=== PATIENT | male | born 1965 | race Caucasian/White ===

== ENCOUNTER 2020-12-14 16:50 | Inpatient (IN) | payer OTHER ==
[~2020-12-14] VITALS: Ht 185.4 cm; Wt 110.2 kg
[2020-12-14 17:04] VITALS: BP 134/68
[2020-12-14 17:26] LABS: ABSOLUTE NEUTROPHILS 8.1 thou/uL (1.4-8.2); BASOPHILS 0.9 % (0.0-2.0); EOSINOPHILS 0.4 % (0.0-3.0); HEMATOCRIT 31.2 % (42.0-52.0); HEMOGLOBIN 10.5 gm/dL (14.0-18.0); LYMPHOCYTES 18.5 % (24.0-44.0); MCH 29.2 pg (26.0-34.0); MCHC 33.7 g/dL (28.0-37.0); MCV 86.7 fL (80.0-100.0); MONOCYTES 6.8 % (1.0-8.0); PLATELET COUNT 319 thou/uL (150-400); POLYS 73.4 % (36.0-66.0); RBC 3.59 mil/uL (4.50-6.00); RDW 13.3 % (10.5-14.5)
[2020-12-14 17:36] LABS: CALCIUM 8.4 mg/dL (8.5-10.1)
[2020-12-14 17:39] LABS: APTT 21.1 Seconds (24.5-32.8); INR 1.02; PROTIME 11.1 Seconds (10.5-12.1)
[2020-12-14 17:43] LABS: ALBUMIN 3.7 g/dL (3.4-5.0); TOTAL BILIRUBIN 0.3 mg/dL (0.2-1.0); TOTAL PROTEIN 6.8 g/dL (6.4-8.2)
[2020-12-14 22:21] VITALS: BP 114/69
[2020-12-14 22:47] VITALS: BP 115/72
[2020-12-14 23:25] VITALS: BP 106/63
--- NOTE | 2020-12-14 23:30 | NUR ---
Pt. was admitted to the unit from the emergency room accompaied by staff. He is alert and oriented. Oriented to the unit and staff. Admission assessment and history is completed. No c/o nausea, but voiced a dull pain in his abdo- men. Up ad rigo to the bathroom. Sinus rythmn on the monitor.
[2020-12-15] VITALS (7 sets, daily range): BP systolic 92–103; BP diastolic 55–67
[2020-12-15 06:20] LABS: HEMATOCRIT 22.6 % (42.0-52.0); HEMOGLOBIN 7.7 gm/dL (14.0-18.0); MCH 29.8 pg (26.0-34.0); MCV 87.8 fL (80.0-100.0); RBC 2.58 mil/uL (4.50-6.00); RDW 12.8 % (10.5-14.5); WBC 5.8 thou/uL (4.0-11.0)
[2020-12-15 06:30] LABS: CALCIUM 7.7 mg/dL (8.5-10.1); POTASSIUM 3.6 mmol/L (3.5-5.1)
[2020-12-15 10:45] LABS: HEMATOCRIT 22.8 % (42.0-52.0); HEMOGLOBIN 7.7 gm/dL (14.0-18.0)
--- NOTE | 2020-12-15 13:24 | NUR ---
Assumed pt care at 7am.Assessment completed.vss but low bp noted.Pt wanted to know when he will be going for gi procedure today. Rn told pt that Gi doc has to see pt first and then decide on when and what kind of procedure to do. Received call from gi lab and pt updates given.Around 1300,Dr Valenzuela rounded on pt and informed pt about going for rgd today.Pt in bed resting and waiting for picker box operator. Will continue to monitor.
--- NOTE | 2020-12-15 15:06 | NUR ---
PT ADMITTED RELATED TO GI BLEED. CM REVIEWED CHART AND SPOKE WITH CARE TEAM. CM MET WITH PT AT BEDSIDE THIS DAY. PT APPEARED TO BE A&O X4. CM ROLE INTRODUCED. PT INDICATED HE LIVES IN A HOUSE WITH HIS SPOUSE AND KIDS. 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 PT INDICATED NO DME OR HH HX. PT INDICATED THAT HE PLANS TO GO ON A [place] TRIP [place]ON [place]. PT'S PCP IS DR. VIVIANA GARCIA. GI FOLLOWING. CM FOLLOWING [facility]ARDINNG DC PLANNING.
[2020-12-16 03:05] VITALS: BP 97/60
--- NOTE | 2020-12-16 03:30 | NUR ---
ASSUMED PT CARE THIS PM. PT IS ALERT AND ORIENTED X4. PT DID NOT C/O PAIN OR N/V. PT DID NOT VERBALIZE ANY CONCERNS. MEDS WERE GIVEN PER EMAR ORDERS. NO VISIBLE SIGN OF DISTRESS WAS NOTED. FALL PRECAUTIONS IN PLACE. WILL CONTINUE TO MONITOR.
[2020-12-16 05:19] LABS: HEMATOCRIT 20.7 % (42.0-52.0); HEMOGLOBIN 7.1 gm/dL (14.0-18.0); MCH 30.2 pg (26.0-34.0); MCHC 34.2 g/dL (28.0-37.0); MCV 88.5 fL (80.0-100.0); RBC 2.33 mil/uL (4.50-6.00); RDW 13.3 % (10.5-14.5); WBC 4.1 thou/uL (4.0-11.0)
[2020-12-16 05:30] LABS: CALCIUM 7.6 mg/dL (8.5-10.1); CREATININE 0.9 mg/dL (0.7-1.3); MAGNESIUM 2.1 mg/dL (1.8-2.4); POTASSIUM 3.5 mmol/L (3.5-5.1)
[2020-12-16 07:00] VITALS: BP 104/60
[2020-12-16 07:25] VITALS: BP 96/61
[2020-12-16 11:51] VITALS: BP 108/56; BP 109/66
--- NOTE | 2020-12-16 15:37 | NUR ---
PT RECEIVED PRBC THIS DAY. PT'S DIET ADVANCED. MONITORING HGB. ANTICIPATE PT WILL BE MEDICALLY STABLE TO DC HOME WITH NO NEEDS ONCE MEDICALLY STABLE.
--- NOTE | 2020-12-16 19:27 | NUR ---
Assumed pt care this am vs stable.Transfused 1 unit of PRBC w/ no adverse effect. POC followed with no signs or verbalizations of distress noted, chronic back pain, patch ordered and given. Endorsed to the night nurse.
[2020-12-16 20:54] LABS: HEMATOCRIT 25.9 % (42.0-52.0); HEMOGLOBIN 8.7 gm/dL (14.0-18.0)
[2020-12-16 20:57] VITALS: BP 113/71
[2020-12-16 23:30] VITALS: BP 116/54
--- NOTE | 2020-12-17 03:50 | NUR ---
ASSSUMED PT CARE THIS PM. PT IS ALERT AND ORIENTED X4. VS ARE WITHIN NORMAL RANGE. MEDS WERE GIVEN PER EMAR ORDERS. PT DID NOT C/O OF PAIN OR VERBALIZE ANY CONCERNS. PT IS ON RA. FALL PRECAUTIONS IN PLACE. WILL CONTINUE TO MONITOR.
[2020-12-17 04:24] VITALS: BP 106/63
[2020-12-17 06:12] LABS: HEMATOCRIT 24.1 % (42.0-52.0); HEMOGLOBIN 8.2 gm/dL (14.0-18.0); MCH 29.6 pg (26.0-34.0); MCHC 33.9 g/dL (28.0-37.0); MCV 87.3 fL (80.0-100.0); RBC 2.76 mil/uL (4.50-6.00); RDW 13.2 % (10.5-14.5); WBC 4.2 thou/uL (4.0-11.0)
[2020-12-17 06:34] LABS: CALCIUM 7.5 mg/dL (8.5-10.1); CREATININE 0.9 mg/dL (0.7-1.3); POTASSIUM 3.2 mmol/L (3.5-5.1)
[2020-12-17 07:00] VITALS: BP 100/60
[2020-12-17 12:00] VITALS: BP 118/71
[2020-12-17 12:49] LABS: HEMATOCRIT 26.2 % (42.0-52.0); HEMOGLOBIN 9.1 gm/dL (14.0-18.0); MCHC 34.6 g/dL (28.0-37.0); MCV 86.6 fL (80.0-100.0); RBC 3.03 mil/uL (4.50-6.00); RDW 13.3 % (10.5-14.5); WBC 4.4 thou/uL (4.0-11.0)
[2020-12-17] MEDS ORDERED: PROTONIX40 M4 PO (13:50)
[2020-12-17] MEDS ORDERED: BIAXIN 500 MG500 M2 PO (13:54)
[2020-12-17] MEDS ORDERED: AMOXICILLIN 50500 MG PO (13:54)
[2020-12-17 13:58] VITALS: BP 118/71
--- NOTE | 2020-12-17 14:18 | NUR ---
ALERT AND ORIENTED AND VITALS STABLE. TOLERATING DIET W/O N/V AND DENIES ANY PAIN. NO BLEEDING NOTED AND REPEAT HBG THIS AFTERNOON STABLE. DC ORDERS RECEIVED. IV DC'D AND DISCHARGE INSTRUCTIONS GIVEN TO PATIENT. RX ALREADY SENT TO PATIENT'S PHARMACY. PATIENT DC'D AND ESCORTED BY NURSING STAFF VIA W/C TO FRIEND'S WAITING CAR.
--- NOTE | 2020-12-17 15:10 | NUR ---
CARE TEAM INDICATED THAT PT IS MEDICALLY STABLE TO DC HOME THIS DAY. PT TO DC HOME TO SELF CARE. NO OTHER CM INTERVENTION INDICATED. CASE CLOSED.
--- NOTE | 2020-12-20 12:06 | PATH ---
[facility] [address] [place] [address] PATHOLOGY RPT PROCEDURE Name: BRYCE GARY Room #: 449-I [facility] IN M.R.#: [id number] Admission: 12/14/20 Date of : 67 Discharge: 12/17/20 Report #: [id number] Path Case #: [id number] [facility] Accession Number: [id number] . 01 Material submitted: . stomach - ANTRUM H. PYLORI . 01 Clinical history: . ESOPHAGOGASTRODUODENOSCOPY GASTRIC EROSION, DUODENITIS, ULCER, HIATAL HERNIA . 02 Diagnosis: Gastric mucosa, antrum, H. pylori, endoscopic biopsy: - Helicobacter pylori induced moderate active gastritis. - Negative for intestinal metaplasia or atrophy. - Moderate number of Helicobacter pylori organisms present on the properly controlled immunohistochemical stain. (IUV:pit; 12/16/2020) QTP 12/16/2020 1321 Local . 02 Electronically signed: . Giana Gambino MD, Pathologist NPI- [id number] . 01 Gross description: . The specimen is received in formalin, labeled "Bryce Gary, antrum H. pylori". Received is a single segment of pale perez tissue measuring 0.4 cm in maximum dimensions. The specimen is submitted entirely in cassette A1. ([facility]; 12/15/2020) NRI/NRI 12/15/2020 1833 Local . 02 Pathologist provided ICD-10: B96.81, K29.70 . 02 CPT . 392110, [id number] Specimen Comment: A courtesy copy of this report has been sent to [phone], [phone] Specimen Comment: [id number] Specimen Comment: Report sent to / DR QUIROGA Specimen Comment: A duplicate report has been generated due to demographic updates. Performed at: [address], [place], [place] [id number] MD Terence Lang MD Phone: [phone] Performed at: [address] [address] PATHOLOGY RPT PROCEDURE Name: BRYCE GARY Room #: 449-I [facility] IN M.R.#: [id number] Admission: 12/14/20 Date of : 67 Discharge: 12/17/20 Report #: [id number] Path Case #: [id number] [facility] [id number] MD Giana Gambino MD Phone: [phone]
== END 2020-12-17 14:20 | disposition home or self-care (01) | DRG 378 ==
LOC: ER 16:50 → EROBS 18:40 → 4W 18:40
PROVIDERS: Emergency Medicine; Nurse Practitioner Family; ADMIT Internal Medicine; ATTEND Internal Medicine
DX: K25.4 Chronic or unspecified gastric ulcer with hemorrhage (principal); D62 Acute posthemorrhagic anemia; Z20.822 Contact with and (suspected) exposure to COVID-19; K44.9 Diaphragmatic hernia without obstruction or gangrene; K29.71 Gastritis, unspecified, with bleeding; K29.81 Duodenitis with bleeding; Z90.49 Acquired absence of other specified parts of digestive tract; Z79.899 Other long term (current) drug therapy
CPT/HCPCS: 10047; 62110; 62900; 70005